=== PATIENT | female | born 1985 | race Caucasian/White ===

== ENCOUNTER 2017-04-16 10:40 | Emergency (ER) | payer OTHER ==
[~2017-04-16] VITALS: Ht 167.6 cm; Wt 103.4 kg
[~2017-04-16 10:40] MED LIST: BIRTH CONTROL PILLS PO; FLUOXETINE HCL20 M2 PO; FLUOXETINE HCL40 M1 PO; IBUPROFEN800 M1 PO; METFORMIN HCL500 M2 PO; OMEPRAZOLE40 M1 PO; SYMBICORT 16010.2 GM INH; VENTOLIN HFA18 GM INH
[2017-04-16 10:50] VITALS: BP 102/79
== END 2017-04-16 11:19 | disposition admitted as inpatient to this hospital (09) ==
LOC: ERH 10:40
DX: J45.909 Unspecified asthma, uncomplicated (principal)